=== PATIENT | female | born 1970 | race African-American/Black ===

== ENCOUNTER 2023-06-10 20:48 | Inpatient (IN) | payer OTHER ==
[2023-06-10 21:57] LABS: HEMATOCRIT 37.7 % (32.4-45.2); HEMOGLOBIN 12.4 G/dL (10.7-15.3); MCH 26.9 pg (25.7-33.7); MCHC 32.8 g/dl (32.0-36.0); MEAN PLT VOLUME 9.8 fl (7.5-11.1); PLATELET COUNT 218.8 10^3/uL (134-434); RDW 16.3 % (11.6-15.6); WHITE BLOOD COUNT 10.5 10^3/uL (4.0-10.8)
[2023-06-10 22:05] VITALS: BMI 26.2
[2023-06-10 22:11] LABS: ALBUMIN 4.2 g/dl (3.4-5.0); BILIRUBIN,TOTAL 0.3 mg/dl (0.2-1); CALCIUM 9.8 mg/dl (8.5-10.1); CREATININE 0.7 mg/dl (0.6-1.3); TOT PROT 6.9 g/dl (6.4-8.2)
[2023-06-10] MEDS ORDERED: ONDANSETRON 4 MG/2 ML VIAL ONE (22:15)
[2023-06-10] MEDS: DEXTROSE 5%-NORMAL SALINE 1,000 ML IV ONE (22:20)
[2023-06-10] MEDS: ONDANSETRON 4 MG/2 ML VIAL IVPB ONE (22:21)
[2023-06-10 22:27] LABS: PLATELET ESTIMATE ADEQUATE
[2023-06-10 23:14] LABS: HEMATOCRIT 31.2 % (32.4-45.2); HEMOGLOBIN 9.8 G/dL (10.7-15.3); MCH 25.9 pg (25.7-33.7); MCHC 31.5 g/dl (32.0-36.0); MEAN CELL VOLUME 82.3 fl (80-96); MEAN PLT VOLUME 9.7 fl (7.5-11.1); PLATELET COUNT 171.8 10^3/uL (134-434); RBC 3.79 10^6/uL (3.60-5.2); RDW 16.1 % (11.6-15.6); WHITE BLOOD COUNT 10.3 10^3/uL (4.0-10.8)
[2023-06-10] MEDS ORDERED: ACETAMINOPHEN INJECTION 100 ML IVPB ONE (23:28)
[2023-06-10] MEDS: ACETAMINOPHEN 1000 MG/100 ML BAG IVPB ONE (23:43)
[2023-06-10] MEDS ORDERED: METOCLOPRAMIDE HCL INJECTION 10 MG/2 ML VIAL ONE (23:49)
[2023-06-11] MEDS: METOCLOPRAMIDE HCL INJECTION 10 MG/2 ML VIAL IVPUSH ONE (00:10)
[2023-06-11] MEDS: METHYLERGONOVINE MALEATE 0.2 MG/1 ML AMP IM ONE (00:10)
[2023-06-11] MEDS: LACTATED RINGERS SOLUTION 1,000 ML/1,000 ML INFUS.BAG IV SCH ×2 (00:15→21:32)
[2023-06-11 03:26] LABS: BASO % 0.2 % (0-2.0); EOS % 0.2 % (0-4.5); HEMATOCRIT 27.9 % (32.4-45.2); LYMPH % 13.3 % (8-40); MCH 26.3 pg (25.7-33.7); MCHC 32.2 g/dl (32.0-36.0); MEAN CELL VOLUME 81.7 fl (80-96); MEAN PLT VOLUME 10.1 fl (7.5-11.1); MONO % 2.2 % (3.8-10.2); NEUT % 84.1 % (42.8-82.8); PLATELET COUNT 212 10^3/uL (134-434); RBC 3.41 M/mm3 (3.60-5.2); RDW 16.8 % (11.6-15.6)
[2023-06-11 08:10] LABS: HEMATOCRIT 24.5 % (32.4-45.2); MCH 27.3 pg (25.7-33.7); MCHC 32.8 g/dl (32.0-36.0); MEAN PLT VOLUME 10.5 fl (7.5-11.1); RBC 2.95 10^6/uL (3.60-5.2); RDW 16.2 % (11.6-15.6); WHITE BLOOD COUNT 14.4 10^3/uL (4.0-10.8)
[2023-06-11] MEDS: MISOPROSTOL 200 MCG TABLET PO ONE (13:46)
[2023-06-11] MEDS ORDERED: ACETAMINOPHEN 500 MG TABLET (FP) ONE (17:39)
[2023-06-11] MEDS: ACETAMINOPHEN 500 MG TABLET (FP) PO PRN (17:43)
[2023-06-11 18:56] LABS: BASO % 0.3 % (0-2.0); EOS % 0.2 % (0-4.5); HEMATOCRIT 26.4 % (32.4-45.2); HEMOGLOBIN 8.7 GM/dL (10.7-15.3); LYMPH % 17.9 % (8-40); MCH 26.6 pg (25.7-33.7); MCHC 33.1 g/dl (32.0-36.0); MEAN CELL VOLUME 80.4 fl (80-96); MEAN PLT VOLUME 9.3 fl (7.5-11.1); MONO % 5.9 % (3.8-10.2); NEUT % 75.7 % (42.8-82.8); PLATELET COUNT 198 10^3/uL (134-434); RBC 3.29 M/mm3 (3.60-5.2); WHITE BLOOD COUNT 17.9 K/mm3 (4.0-10.0)
[2023-06-12] MEDS: CEFAZOLIN 1 GM in DEXTROSE 5%-WATER - 50 ML IVPB ONE (09:02)
[2023-06-12 10:12] LABS: BASO % 0.4 % (0-2.0); EOS % 2.3 % (0-4.5); HEMATOCRIT 26.8 % (32.4-45.2); MCH 27.1 pg (25.7-33.7); MCHC 33.7 g/dl (32.0-36.0); MEAN CELL VOLUME 80.4 fl (80-96); MEAN PLT VOLUME 9.3 fl (7.5-11.1); MONO % 4.9 % (3.8-10.2); NEUT % 69.4 % (42.8-82.8); PLATELET COUNT 154 10^3/uL (134-434); RBC 3.33 M/mm3 (3.60-5.2); RDW 15.4 % (11.6-15.6); WHITE BLOOD COUNT 13.3 K/mm3 (4.0-10.0)
[2023-06-12 10:30] LABS: POTASSIUM 3.5 mmol/L (3.5-5.1)
[2023-06-12 10:32] LABS: BLOOD UREA NITROGEN 7.6 mg/dL (7-18); CALCIUM 8.2 mg/dL (8.5-10.1)
[2023-06-12 10:35] LABS: CREATININE 0.5 mg/dL (0.55-1.3)
[2023-06-12 14:20] LABS: EPI CELLS 10 /uL (0-25.1); HYALINE CASTS 0 /uL (0-3.1); URINE APPEARANCE CLEAR; URINE BACTERIA 20 /uL (0-1359); URINE BILIRUBIN NEGATIVE (NEGATIVE); URINE COLOR YELLOW; URINE GLUCOSE (UA) NEGATIVE (NEGATIVE); URINE KETONE NEGATIVE (NEGATIVE); URINE LEUK ESTERASE 1+ (NEGATIVE); URINE NITRITE NEGATIVE (NEGATIVE); URINE PROTEIN NEGATIVE (NEGATIVE); URINE RBC 10 /uL (0-23.9); URINE UROBILINOGEN 0.2 mg/dL (0.2-1.0); URINE WBC 58 /uL (0-25.8)
[2023-06-12] MEDS: CEFAZOLIN 1 GM in DEXTROSE 5%-WATER - 50 ML IVPB SCH (17:09)
[2023-06-12] MEDS: PIPERACILLIN/TAZOB 4.5 GM 4.5 GM in DEXTROSE 5%-WATER 100 ML IVPB SCH (21:25)
[2023-06-13 09:58] LABS: BASO % 0.5 % (0-2.0); EOS % 2.6 % (0-4.5); HEMOGLOBIN 8.8 GM/dL (10.7-15.3); LYMPH % 17.7 % (8-40); MCH 26.8 pg (25.7-33.7); MCHC 32.6 g/dl (32.0-36.0); MEAN CELL VOLUME 82.4 fl (80-96); MEAN PLT VOLUME 9.3 fl (7.5-11.1); MONO % 5.3 % (3.8-10.2); NEUT % 73.9 % (42.8-82.8); PLATELET COUNT 162 10^3/uL (134-434); RBC 3.28 M/mm3 (3.60-5.2); RDW 15.6 % (11.6-15.6); WHITE BLOOD COUNT 13.1 K/mm3 (4.0-10.0)
[2023-06-13] MEDS: LEVOTHYROXINE NA 25 MCG TABLET (FP) PO SCH (10:12)
[2023-06-13] MEDS: LABETALOL HCL 200 MG TABLET (FP) PO SCH ×2 (10:13→21:13)
[2023-06-13 10:19] LABS: POTASSIUM 3.5 mmol/L (3.5-5.1)
[2023-06-13 10:24] LABS: ALBUMIN 2.6 g/dl (3.4-5.0); CALCIUM 8.6 mg/dL (8.5-10.1)
[2023-06-13 10:26] LABS: CREATININE 0.6 mg/dL (0.55-1.3)
[2023-06-13 10:28] LABS: BILIRUBIN,TOTAL 0.5 mg/dL (0.2-1); TOT PROT 5.4 g/dl (6.4-8.2)
[2023-06-13] MEDS ORDERED: FENTANYL CITRATE/PF 50 MCG/ML VIAL ONE (11:56)
[2023-06-13] MEDS ORDERED: PROPOFOL 20 ML ONE (11:56)
[2023-06-13] MEDS ORDERED: MIDAZOLAM HCL 2 MG/2 ML SINGLE DOSE VIAL ONE (11:56)
[2023-06-13] MEDS ORDERED: KETOROLAC TROMETHAMINE 30 MG/1 ML VIAL ONE (11:57)
[2023-06-13] MEDS ORDERED: DEXAMETHASONE SOD PHOSPHATE 4 MG/1 ML VIAL ONE (11:57)
[2023-06-13] MEDS ORDERED: ONDANSETRON 4 MG/2 ML VIAL ONE (11:57)
[2023-06-13] MEDS ORDERED: IBUPROFEN 600 MG TABLET (FP) PO PRN (12:01)
[2023-06-13] MEDS ORDERED: ACETAMINOPHEN 500 MG TABLET (FP) PO PRN (12:51)
[2023-06-13 16:59] VITALS: RESP 18
[2023-06-13] MEDS: PIPERACILLIN/TAZOB 4.5 GM 4.5 GM in DEXTROSE 5%-WATER 100 ML IVPB SCH (19:22)
[2023-06-13] MEDS: LACTATED RINGERS SOLUTION 1,000 ML/1,000 ML INFUS.BAG IV SCH (19:22)
[2023-06-14] MEDS: LEVOTHYROXINE NA 25 MCG TABLET (FP) PO SCH (06:13)
[2023-06-14 09:28] LABS: HEMATOCRIT 24.8 % (32.4-45.2); MCH 26.7 pg (25.7-33.7); MCHC 32.1 g/dl (32.0-36.0); MEAN CELL VOLUME 83.2 fl (80-96); PLATELET COUNT 186 10^3/uL (134-434); RBC 2.99 M/mm3 (3.60-5.2); WHITE BLOOD COUNT 13.8 K/mm3 (4.0-10.0)
[2023-06-14 09:56] LABS: POTASSIUM 3.7 mmol/L (3.5-5.1)
[2023-06-14 10:06] LABS: BLOOD UREA NITROGEN 7.5 mg/dL (7-18)
[2023-06-14 10:07] LABS: ALBUMIN 2.5 g/dl (3.4-5.0); CALCIUM 9.3 mg/dL (8.5-10.1)
[2023-06-14 10:11] LABS: BILIRUBIN,TOTAL 0.3 mg/dL (0.2-1); TOT PROT 5.7 g/dl (6.4-8.2)
[2023-06-14 10:12] LABS: CREATININE 0.7 mg/dL (0.55-1.3)
[2023-06-14 12:55] VITALS: BP 136/63; PULSE 96; TEMP 98.9
== END 2023-06-14 14:44 | disposition home or self-care (01) | DRG 770 ==
LOC: FER 20:48 → OBSVTOIN 06-11 09:35 → JERBED 06-11 09:35 → J5S 06-11 19:46
PROVIDERS: ADMIT Internal Medicine; ATTEND Internal Medicine
PROC: 30233N1 Transfusion of Nonautologous Red Blood Cells into Peripheral Vein, Percutaneous Approach (ICD-10-PCS; 2023-06-11)
PROC: 10D17ZZ Extraction of Products of Conception, Retained, Via Natural or Artificial Opening (ICD-10-PCS; principal; 2023-06-13 12:00)
DX: O03.4 Incomplete spontaneous abortion without complication (principal); D62 Acute posthemorrhagic anemia; D25.9 Leiomyoma of uterus, unspecified; I10 Essential (primary) hypertension; E03.9 Hypothyroidism, unspecified; N93.9 Abnormal uterine and vaginal bleeding, unspecified
CPT/HCPCS: 36415; 36430; 76830-TC; 80048; 80053; 81003; 84702; 85025; 85027; 86850; 86900; 86901; 86922; 87040; 87086; 88305-TC; 94760; 99285-25; J0131; P9058

== ENCOUNTER 2023-07-06 09:03 | Emergency (ER) | payer OTHER ==
[2023-07-06 09:20] VITALS: BP 164/78; PULSE 73; RESP 20; TEMP 98; BMI 27.4
[2023-07-06] MEDS ORDERED: SODIUM CHLORIDE 1,000 ML IV STA (09:26)
[2023-07-06 10:59] LABS: EPITHELIAL CELLS 0-5 /hpf
[2023-07-06] MEDS ORDERED: CEPHALEXIN MONOHYDRATE 500 MG CAPSULE (UD) ONE (11:30)
[2023-07-06] MEDS: CEPHALEXIN MONOHYDRATE 500 MG CAPSULE (UD) PO ONE (11:31)
== END 2023-07-06 11:44 | disposition home or self-care (01) ==
LOC: FER 09:03
DX: R42 Dizziness and giddiness (principal); R68.2 Dry mouth, unspecified; R53.81 Other malaise; N30.00 Acute cystitis without hematuria
CPT/HCPCS: 36415; 81003; 81015; 84443; 84484; 93005; 99284-25

== ENCOUNTER 2023-07-06 18:26 | Emergency (ER) | payer OTHER ==
[2023-07-06 18:38] VITALS: RESP 20; TEMP 99.2; BMI 24.7
[2023-07-06 19:43] VITALS: PULSE 62
[2023-07-06] MEDS ORDERED: ALPRAZolam 0.25 MG TABLET ONE (20:06)
[2023-07-06] MEDS: ALPRAZolam 0.25 MG TABLET PO ONE (20:09)
[2023-07-06 20:53] VITALS: BP 165/75
== END 2023-07-06 20:52 | disposition home or self-care (01) ==
LOC: FER 18:26
DX: I10 Essential (primary) hypertension (principal); R11.0 Nausea; F41.9 Anxiety disorder, unspecified
CPT/HCPCS: 99283-25